=== PATIENT | female | born 1950 | race Caucasian/White ===

== ENCOUNTER → 2018-05-24 | Day surgery (SDC) | payer BC ==
[~2018-05-24] MED LIST: BYSTOLIC10 MG PO; CALCIUM ACETAT667 M1 PO; EVOXAC30 MG PO; FENTANYL CITRATE/PF 100MCG/2 ML INJ ONE; HUMIRA40 MG/0.8 SC; LEFLUNOMIDE20 MG PO; LOSARTAN POTASS25 MG PO; MIDAZOLAM HCL 2 MG/2 ML VIAL ONE; MULTI-VITAMIN1 EACH PO; OR PHACO EYE KIT ONE; PREDNISOLO15 MG/5 ML PO; PREDNISONE5 MG PO; PREOP PHACO EYE KIT ONE; TUMERIC PO; VITAMIN D400 UNIT PO
[2018-05-24 12:50] VITALS: BP 150/83
== END | disposition home or self-care (01) ==
LOC: OR 10:30
PROVIDERS: ATTEND Ophthalmology
DX: H25.11 Age-related nuclear cataract, right eye (principal); I10 Essential (primary) hypertension; M06.9 Rheumatoid arthritis, unspecified; M35.00 Sjogren syndrome, unspecified; F41.9 Anxiety disorder, unspecified
CPT/HCPCS: 66984; J2250; V2632

== ENCOUNTER → 2022-03-10 | Day surgery (SDC) | payer BC, MEDICARE ==
[~2022-03-10] MED LIST changes: +CRESTOR10 MG PO; +IRBESARTAN150 MG PO; +PLAQUENIL200 MG PO
[2022-03-10 10:00] VITALS: BP 144/73
== END | disposition home or self-care (01) ==
LOC: OR 07:01
PROVIDERS: ATTEND Ophthalmology
DX: H25.12 Age-related nuclear cataract, left eye (principal); M35.00 Sjogren syndrome, unspecified; M06.9 Rheumatoid arthritis, unspecified; I10 Essential (primary) hypertension; E78.5 Hyperlipidemia, unspecified; Z79.899 Other long term (current) drug therapy
CPT/HCPCS: J2250; J3010; V2632